=== PATIENT | female | born 1990 | race Caucasian/White ===

== ENCOUNTER 2016-10-06 09:55 | Emergency (ER) | payer OTHER ==
[2016-10-06] MEDS: 0.9 % SODIUM CHLORIDE 1,000 ML BAG IV ONE (10:48)
[2016-10-06] MEDS: PROMETHAZINE HCL 25 MG in 0.9 % SODIUM CHLORIDE 100ML 100 ML IVPB ONE (10:50)
--- NOTE | 2016-10-06 11:06 | Emergency Department Record ---
History of Present Illness - General Chief Complaint: Dizziness Stated Complaint: DIZZY AND VOMITING Time Seen by Provider: 10/06/16 10:33 Source: Patient Mode of Arrival: Ambulatory Limitations: No limitations - History of Present Illness Initial Comments: pt started becoming dizzy with the room spinning since last night. she has been having difficulty walking. she states that when she lies flat the room is still spinning. she has vomited multiple times from the dizziness MD Complaint: Dizziness, Difficulty walking Onset/Timin -: Hour(s) Timing: Unsure, Awoke with symptoms Description: Lightheadedness, Nausea, Off-balance, "Room spinning" History of Same: No History of Trauma: No Improves With: Remaining still Worsens With: Movement, Position, Exertion Associated Symptoms: Diaphoresis, Fever/chills, Weakness - [place] Coma Scale Eye Response: (4) Open spontaneously Motor Response: (6) Obeys commands Verbal Response: (5) Oriented [place] Total: 15 - Symptoms of Stroke Symptoms of stroke: Dizziness, Vertigo - Related Data Previous Rx's Medication Instructions Recorded Meclizine HCl [Antivert] 25 mg PO Q8H #20 tablet 10/06/16 Allergies Allergy/AdvReac Type Severity Reaction Status Date / Time amoxicillin Allergy HIVES Verified 10/06/16 10:13 Travel Screening - Travel/Exposure Within Last 30 Days Have you traveled within the last 30 days?: No - Travel/Exposure Within Last Year Have you traveled outside the [place] in the last year?: No - Additonal Travel Details Have you been exposed to anyone with a communicable illness?: No - Travel Symptoms Symptom Screening: None Review of Systems Reviewed: No additional complaints except as noted below Constitutional: Reports: As per HPI. Denies: Chills, Fever, Malaise, Night sweats, Weakness, Weight change Eyes: Reports: As per HPI. Denies: Eye discharge, Eye pain, Photophobia, Vision change ENT: Reports: As per HPI. Denies: Congestion, Dental pain, Ear pain, Epistaxis , Hearing loss, Throat pain Respiratory: Reports: As per HPI. Denies: Cough, Dyspnea, Hemoptysis, Stridor, Wheezes Cardiovascular: Reports: As per HPI. Denies: Arrhythmia, Chest pain, Dyspnea on exertion, Edema, Murmurs, Orthopnea, Palpitations, Paroxysmal nocturnal dyspnea, Rheumatic Fever, Syncope Endocrine: Reports: As per HPI. Denies: Fatigue, Heat or cold intolerance, Polydipsia, Polyuria Gastrointestinal: Reports: As per HPI. Denies: Abdominal pain, Constipation, Diarrhea, Hematemesis, Hematochezia, Melena, Nausea, Vomiting Genitourinary: Reports: As per HPI. Denies: Abnormal menses, Discharge, Dyspareunia, Dysuria, Frequency, Hematuria, Incontinence, Retention, Urgency Musculoskeletal: Reports: As per HPI. Denies: Arthralgia, Back pain, Gout, Joint swelling, Myalgia, Neck pain Skin: Reports: As per HPI. Denies: Bruising, Change in color, Change in hair/ nails, Lesions, Pruritus, Rash Neurological: Reports: As per HPI. Denies: Abnormal gait, Confusion, Headache, Numbness, Paresthesias, Seizure, Tingling, Tremors, Vertigo, Weakness Psychiatric: Reports: As per HPI. Denies: Anxiety, Auditory hallucinations, Depression, Homicidal thoughts, Suicidal thoughts, Visual hallucinations Hematological/Lymphatic: Reports: As per HPI. Denies: Anemia, Blood Clots, Easy bleeding, Easy bruising, Swollen glands Past Medical History - SOCIAL HISTORY Smoking Status: Never smoker Alcohol Use: Occasional Drug Use: None - RESPIRATORY Hx Respiratory Disorders: No - CARDIOVASCULAR Hx Cardio Disorders: No - NEURO Hx Neuro Disorders: No - GI Hx GI Disorders: No - Hx Genitourinary Disorders: No - ENDOCRINE Hx Endocrine Disorders: No - MUSCULOSKELETAL Hx Musculoskeletal Disorders: No - PSYCH Hx Psych Problems: Yes Hx Anxiety: Yes - HEMATOLOGY/ONCOLOGY Hx Hematology/Oncology Disorders: No Family Medical History Any Significant Family History?: No Family Hx Comment (NOT TO BE USED IN PLACE OF ITEMS BELOW): Mom thryoid. Physical Exam - General General Appearance: Alert, Oriented x3, Cooperative, Mild distress - Head Head exam: Normal inspection - Eye Eye exam: Normal appearance, PERRL, EOMI, Nystagmus Pupils: Normal accommodation - ENT ENT exam: Normal exam, Mucous membranes moist, Normal external ear exam, Normal orophraynx, TM's normal bilaterally Ear exam: Normal external inspection. negative: External canal tenderness Nasal Exam: Normal inspection. negative: Discharge, Sinus tenderness Mouth exam: Normal external inspection, Tongue normal Teeth exam: Normal inspection. negative: Dental caries Throat exam: Normal inspection. negative: Tonsillar erythema, Tonsillar exudate - Neck Neck exam: Normal inspection, Full ROM. negative: Tenderness - Respiratory Respiratory exam: Normal lung sounds bilaterally. negative: Respiratory distress - Cardiovascular Cardiovascular Exam: Regular rate, Normal rhythm, Normal heart sounds - GI/Abdominal GI/Abdominal exam: Soft, Normal bowel sounds. negative: Tenderness - Rectal Rectal exam: Deferred - exam: Deferred - Extremities Extremities exam: Normal inspection, Full ROM, Normal capillary refill. negative: Tenderness - Back Back exam: Reports: Normal inspection, Full ROM. Denies: Muscle spasm, Rash noted, Tenderness - Neurological Neurological exam: Alert, CN II-XII intact, Normal gait, Oriented X3 - Psychiatric Psychiatric exam: Normal affect, Normal mood - Skin Skin exam: Dry, Intact, Normal color, Warm Course Vital Signs 10/06/16 10:00 Temperature 97.9 F Pulse Rate 97 H Respiratory 16 Rate Blood Pressure 119/72 Pulse Ox 97 - Reevaluation(s) Reevaluation #1: 10/06/16 11:38 pt feels much better Disposition Disposition: Discharge Clinical Impression: Benign positional vertigo Qualifiers: Laterality: bilateral Qualified Code(s): H81.13 - Benign paroxysmal vertigo, bilateral Disposition: Home, Self-Care Condition: (1) Good Instructions: Vertigo (ED), Benign Paroxysmal Positional Vertigo (ED) Additional Instructions: follow up with family doctor. return sooner if worse. Prescriptions: Meclizine HCl [Antivert] 25 mg PO Q8H #20 tablet Forms: Patient Portal Access, Return to Work/School Quality - Quality Measures Quality Measures: N/A - Blood Pressure Screening Does Patient Have Any of the Following: No Blood Pressure Classification: Normal BP Reading Systolic Measurement: 119 Diastolic Measurement: 72 Screening for High Blood Pressure: < Normal BP, F/U Not Required > [[id number]]
--- NOTE | 2016-10-07 08:06 | CT SCAN REPORT ---
EXAM: HEAD CT WITHOUT CONTRAST HISTORY: LOSS OF BALANCE. TECHNIQUE: Contiguous axial images from the cerebral convexities to the foramen magnum were obtained without contrast. Comparison: None. Encounter: Initial. Hand dominance: Unknown. FINDINGS: The brain volume is normal. No acute intracranial hemorrhage, mass effect, or midline shift. No CT evidence of acute infarct. The ventricles, basal cisterns, and sulci are within normal limits. The osseous structures, soft tissues, and paranasal sinuses are unremarkable. IMPRESSION: NORMAL HEAD CT. JOB NUMBER: [id number] [facility]
== END 2016-10-06 12:04 | disposition home or self-care (01) ==
LOC: ER 09:55
DX: H81.13 Benign paroxysmal vertigo, bilateral (principal); R11.2 Nausea with vomiting, unspecified
CPT/HCPCS: 70450; 96365; 99284; J2550; J7030